=== PATIENT | male | born 1935 | race Hispanic/Latino ===

== ENCOUNTER 2019-04-19 22:24 | Inpatient (IN) | payer MEDICARE ==
[~2019-04-19] VITALS: Ht 175.3 cm; Wt 81.6 kg
[2019-04-19 23:27] VITALS: BP 166/77
--- NOTE | 2019-04-19 23:27 | NUR ---
ADMISSION NOTE: Admitted to floor per stretcher via EMS from [facility]. Fully awake and responsive. AOx4. Placed in bed comfortably. VS checked and recorded. Assessment done. (See CPOE flow chart for full assessment). Plan of care initiated. Has FC attached to urometer bag,Fr.16 , draining a reddish colored urine. On continuous bladder irrigation as ordered. CT A/P with /without contrast stat done as ordered. Denies feeling of discomfort. No apparent distress noted. Monitored and cared for. Addendum: 04/20/19 at 0749 by ANNELIESE HERNANDEZ RN RN Noted on written order to call Dr. Haskins in AM wit pt's name and room number. - carried out. Reported to AM nurse.
[2019-04-19] MEDS ORDERED: ACETAMINOPHEN 325 MG TAB PO PRN ×2 (23:45)
[2019-04-19] MEDS ORDERED: ONDANSETRON HCL 4 MG/2 ML VIAL IV PRN (23:45)
[2019-04-20] MEDS ORDERED: IOHEXOL-350 75 ML VIAL IV ONE (00:46)
[2019-04-20 00:48] LABS: BASOPHILS % (AUTO) 0.6 % (0.0-5.0); EOSINOPHILS % (AUTO) 1.2 % (0.0-8.0); LYMPHOCYTES % (AUTO) 27.4 % (21.0-51.0); MEAN CORPUSCULAR HGB CONC 34.3 g/dL (32.0-36.0); MEAN CORPUSCULAR VOLUME 96.4 fL (79-99); MONOCYTES % (AUTO) 6.2 % (3.0-13.0); NEUTROPHILS % (AUTO) 64.6 % (40.0-77.0); PLATELET COUNT (AUTO) 153 K/uL (130-400); RED BLOOD CELL COUNT(AUTO) 4.36 MIL/uL (4.50-6.20); RED CELL DISTRIBUTION WIDTH 14.2 % (11.0-15.5); WHITE BLOOD COUNT (AUTO) 8.4 K/uL (4.8-10.8)
[2019-04-20 01:00] LABS: ALBUMIN 3.4 g/dL (3.5-5.0); BILIRUBIN,TOTAL 0.6 mg/dL (0.2-1.0); CREATININE 0.9 mg/dL (0.5-1.5); TOTAL PROTEIN, SERUM 7.1 g/dL (6.0-8.3)
--- NOTE | 2019-04-20 01:05 | NUR ---
SENT TO CT A/P WITH / WITHOUT CONTRAST VIA WHEELCHAIR.
--- NOTE | 2019-04-20 01:30 | NUR ---
Sent back to room via wheelchair from CT scan. No untoward incident happened.
[2019-04-20] MEDS: SODIUM CHLORIDE 0.9% 1000ML 1,000 ML IV SCH ×3 (03:24→20:53)
[2019-04-20 04:00] VITALS: BP 130/51
--- NOTE | 2019-04-20 06:00 | NUR ---
CONTINUOUS BLADDER IRRIGATION: TOTAL INTAKE: 5400 TOTAL OUTPUT:5950
[2019-04-20 06:25] LABS: BASOPHILS % (AUTO) 0.6 % (0.0-5.0); EOSINOPHILS % (AUTO) 0.9 % (0.0-8.0); HEMATOCRIT 40.6 % (42-54); MEAN CORPUSCULAR HEMOGLOBIN 32.8 pg (27.0-33.0); MEAN CORPUSCULAR HGB CONC 34.2 g/dL (32.0-36.0); MONOCYTES % (AUTO) 5.9 % (3.0-13.0); NEUTROPHILS % (AUTO) 62.6 % (40.0-77.0); PLATELET COUNT (AUTO) 178 K/uL (130-400); RED BLOOD CELL COUNT(AUTO) 4.23 MIL/uL (4.50-6.20); RED CELL DISTRIBUTION WIDTH 13.9 % (11.0-15.5); WHITE BLOOD COUNT (AUTO) 8.2 K/uL (4.8-10.8)
[2019-04-20 06:41] LABS: ALBUMIN 3.3 g/dL (3.5-5.0); BILIRUBIN,TOTAL 0.7 mg/dL (0.2-1.0); CREATININE 0.9 mg/dL (0.5-1.5); POTASSIUM 4.4 mmol/L (3.5-5.1); TOTAL PROTEIN, SERUM 6.8 g/dL (6.0-8.3)
[2019-04-20 07:30] VITALS: BP 189/79
[2019-04-20] MEDS: FAMOTIDINE/PF 20 MG/2 ML VIAL IV SCH ×2 (07:53→20:53)
[2019-04-20] MEDS ORDERED: FAMOTIDINE/PF 20 MG/2 ML VIAL IV SCH (09:00)
[2019-04-20 09:10] VITALS: BP 161/71
[2019-04-20] MEDS ORDERED: MORPHINE SULFATE 2 MG/ML 1ML SYG IVP PRN (10:45)
[2019-04-20 11:00] VITALS: BP 175/75
[2019-04-20 12:14] LABS: INR 1.03 (0.85-1.15); PARTIAL THROMBOPLASTIN TIME 28.7 SEC (26.3-35.5); PROTHROMBIN TIME 10.8 SEC (9.6-11.6)
[2019-04-20] MEDS: HYDRALAZINE HCL 20 MG/ML VIAL IV PRN (12:42)
--- NOTE | 2019-04-20 14:51 | NUR ---
1430 went into room to have pt sign IM Letter, stated she went downstairs to obtain a copy and signed the IM Letter downstairs.She showed me a copy that was given to her and was the same IM Letter i had.
--- NOTE | 2019-04-20 15:00 | NUR ---
INITIAL MET W PATIENT & DAUGHTER AT BEDSIDE- PT SLIGHTLY CONFUSED, DAUGHTER SUPPLIED INFORMATION STATES PT LIVES ALONE, RIGHT NEXT TO SON JEANNA BROWN WHO WILL PROVIDE TRANSPORT ON DISCHARGE, [facility] HAS PROVIDER SERVICES OF 30/HR/WEEK, HAS A WALKER AND AN CANE, A RAMP FOR THE HOME AND A HANDICAPPED BATHROOM DAUGHTER STATES DCP IS HOME, CM TO FOLLOW. AWAITING UROLOGIST FOR RECOMMENDATIONS. Addendum: 04/21/19 at 1804 by LEÓN RENDON RN CM Amended: Links added.
[2019-04-20 16:00] VITALS: BP 132/56
[2019-04-20 20:00] VITALS: BP 144/66
[2019-04-20] MEDS ORDERED: LEVO75TA10 PO (23:33)
[2019-04-20] MEDS ORDERED: ASPI-555 PO (23:33)
[2019-04-20] MEDS ORDERED: CLOP75TA32 PO (23:33)
[2019-04-20] MEDS ORDERED: TERA2CAP4 PO (23:33)
[2019-04-20] MEDS ORDERED: METO50TA9 PO (23:33)
[2019-04-20] MEDS ORDERED: CLON0.5T4 PO (23:33)
[2019-04-20] MEDS ORDERED: ESCI20TA36 PO (23:33)
[2019-04-20] MEDS ORDERED: LOSA100T58 PO (23:33)
[2019-04-20] MEDS ORDERED: ATOR10 PO (23:33)
[2019-04-21] VITALS (7 sets, daily range): BP systolic 140–182; BP diastolic 63–88
[2019-04-21] MEDS: SODIUM CHLORIDE 0.9% 1000ML 1,000 ML IV SCH ×2 (06:13→15:55)
[2019-04-21] MEDS: FAMOTIDINE/PF 20 MG/2 ML VIAL IV SCH ×2 (08:30→20:58)
[2019-04-21 11:13] LABS: CREATINE KINASE, TOTAL 78 U/L (21-232); MYOGLOBIN 114 ng/mL (10-92); TROPONIN I < 0.04 ng/mL (0.00-0.06)
--- NOTE | 2019-04-21 12:04 | NUR ---
UROLOGY CONSULT Dr. Haskins's office called today and consult placed for Gross Hematuria. Office apparently called and stated MD is aware of the pt but no consult was placed. Consult placed today, MD pending to see pt. Family informed and updated.
[2019-04-21] MEDS: HYDRALAZINE HCL 20 MG/ML VIAL IV PRN (15:57)
--- NOTE | 2019-04-21 19:40 | NUR ---
Please refer to [facility] report regarding Dr Haskins's consult and his visit to see pt. Sugey Martinez FINANCIAL ASSISTANCE ADVISOR environmental health physician was inform of Dr Haskins signing off the case and that CBI is still going and the urine has been clear all day. She said she will be coming to see the patient later.
[2019-04-22] MEDS ORDERED: CLONAZEPAM 1 MG TABLET PO SCH
[2019-04-22] MEDS: SODIUM CHLORIDE 0.9% 1000ML 1,000 ML IV SCH (03:28)
[2019-04-22 03:45] VITALS: BP 183/76
[2019-04-22] MEDS: HYDRALAZINE HCL 20 MG/ML VIAL IV PRN (03:54)
[2019-04-22 07:00] VITALS: BP 168/75
[2019-04-22] MEDS ORDERED: LEVOTHYROXINE 75 MCG TABLET PO SCH (07:30)
--- NOTE | 2019-04-22 08:36 | NUR ---
CBI D/Manan at this time, pending pt to void.
[2019-04-22] MEDS ORDERED: CITALOPRAM 20 MG TABLET PO SCH (09:00)
[2019-04-22] MEDS ORDERED: METOPROLOL SUCCINATE 50 MG PO SCH (09:00)
[2019-04-22] MEDS ORDERED: LOSARTAN 100 MG TABLET PO SCH (09:00)
--- NOTE | 2019-04-22 09:00 | NUR ---
I was informed by Nataliia DUVALLrespiratory care program director nurse during the night shift supervisor that son came to the nurse's station questioning why are we discharging his father instead of transferring him to another hospital. I spoke to Dr Patterson who is still rounding and he said that the hematuria was resolved and he wants pt to follow up with a urologist as outpatient and he head on to the room to talk to pt's son. When Dr Patterson was explaining why he was being discharge, son said that we are just guessing and when Dr Patterson was reading and explaining the CT scan results to the son, he kept rudely interrupting and he was eating a taco at the time and pieces of food kept flying out of his mouth all over the place and I asked the son if he can wait until the doctor finished explaining the CT results and he replied " I don't care what he has to say, lets just get my father out of here and we are taking him to [facility]" when Dr Patterson asked him who made the arrangement he replied "we did, is already taking care of, lets just get everything ready to get him out of here".
[2019-04-22] MEDS: FAMOTIDINE/PF 20 MG/2 ML VIAL IV SCH (09:35)
--- NOTE | 2019-04-22 11:22 | NUR ---
PT VOIDING STATUS Pt voided X1, no c/o pain voiding, hematuria resolved, pt status stable and d/c pending.
[2019-04-22] MEDS ORDERED: ATORVASTATIN CALCIUM 10 MG TABLET PO SCH (21:00)
[2019-04-22] MEDS ORDERED: TERAZOSIN HCL 2 MG CAPSULE PO SCH (21:00)
== END 2019-04-22 11:50 | disposition home or self-care (01) | DRG 696 ==
LOC: 3AH 23:24 → OBSVTOIN 23:24
PROVIDERS: ADMIT Internal Medicine; ATTEND Internal Medicine
DX: R31.0 Gross hematuria (principal); E44.1 Mild protein-calorie malnutrition; J98.11 Atelectasis; I10 Essential (primary) hypertension; I25.10 Atherosclerotic heart disease of native coronary artery without angina pectoris; N28.1 Cyst of kidney, acquired; M19.90 Unspecified osteoarthritis, unspecified site; K40.90 Unilateral inguinal hernia, without obstruction or gangrene, not specified as recurrent; K76.89 Other specified diseases of liver; T45.515A Adverse effect of anticoagulants, initial encounter; Y92.89 Other specified places as the place of occurrence of the external cause; Z68.26 Body mass index [BMI] 26.0-26.9, adult; Z95.1 Presence of aortocoronary bypass graft; Z85.46 Personal history of malignant neoplasm of prostate
CPT/HCPCS: 36415; 74178; 80053; 82550; 83874; 84153; 84484; 85025; 85610; 85730; G0378; J0360; J2405; J3490; Q9967